=== PATIENT | male | born 1965 | race Caucasian/White ===

== ENCOUNTER 2019-06-17 12:44 | Inpatient (IN) | payer OTHER ==
[~2019-06-17] VITALS: Ht 177.8 cm; Wt 85.7 kg
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
[2019-06-17 12:45] VITALS: BP 142/96
[2019-06-17 13:07] LABS: ABSOLUTE NEUTROPHILS 4.7 thou/uL (1.4-8.2); BASOPHILS 1.3 % (0.0-2.0); EOSINOPHILS 3.1 % (0.0-3.0); HEMATOCRIT 41.1 % (42.0-52.0); HEMOGLOBIN 14.2 gm/dL (14.0-18.0); LYMPHOCYTES 17.6 % (24.0-44.0); MCH 27.9 pg (26.0-34.0); MCHC 34.4 g/dL (28.0-37.0); MCV 81.1 fL (80.0-100.0); MONOCYTES 6.5 % (1.0-8.0); PLATELET COUNT 212 thou/uL (150-400); POLYS 71.5 % (36.0-66.0); RBC 5.08 mil/uL (4.50-6.00); WBC 6.6 thou/uL (4.0-11.0)
[2019-06-17 13:16] LABS: CALCIUM 9.1 mg/dL (8.5-10.1); POTASSIUM 3.5 mmol/L (3.5-5.1)
[2019-06-17 13:22] LABS: ALBUMIN 3.8 g/dL (3.4-5.0); TOTAL BILIRUBIN 0.4 mg/dL (<0.1-1.0); TOTAL PROTEIN 7.1 g/dL (6.4-8.2)
[2019-06-17 13:23] LABS: APTT 25.9 Seconds (24.5-32.8)
[2019-06-17 13:25] LABS: POC CA IONIZED 4.6 mg/dL (4.5-5.3); POC CREATININE 0.9 mg/dL (0.6-1.3); POC HEMOGLOBIN 12.2 g/dL (14.0-18.0); POC POTASSIUM 3.9 mmol/L (3.5-5.1)
[2019-06-17 15:40] LABS: HEMATOCRIT 37.3 % (42.0-52.0); HEMOGLOBIN 12.6 gm/dL (14.0-18.0)
[2019-06-17 17:00] VITALS: BP 139/97
[2019-06-17 18:29] VITALS: BP 137/92
[2019-06-17 18:40] VITALS: BP 136/98
[2019-06-17 19:50] VITALS: BP 147/100
[2019-06-18] VITALS (7 sets, daily range): BP systolic 116–124; BP diastolic 60–87
--- NOTE | 2019-06-18 01:48 | NUR ---
ASSESSMENT: PT REMAIN ALERT AND ORIENT TIMES FOUR. PT IS SLEEPY, YET EASY TO AROUSE. RIGHT GROIN SITE, CLEAR OF OOZING AND PAIN. SR PER MONITOR, VSS, AFEBRILE. SPOUSE AT THE SIDE OF THE BED FOR THE NIGHT. POST COIL EMBOLIZATION THE PT IS RESTING WELL. REMAINING NPO, BLOOD SUGAR WAS 88, D5W 1/2 NS WITH 20 MEQ KCL INITIATED. SLOW PROGRESS TOWARDS DC GOALS, WILL CONTINUE TO MONITOR.
[2019-06-18 05:26] LABS: HEMATOCRIT 33.9 % (42.0-52.0); HEMOGLOBIN 11.5 gm/dL (14.0-18.0); MCH 27.9 pg (26.0-34.0); MCV 82.1 fL (80.0-100.0); RBC 4.14 mil/uL (4.50-6.00); RDW 14.4 % (10.5-14.5); WBC 7.4 thou/uL (4.0-11.0)
[2019-06-18 05:36] LABS: CALCIUM 7.8 mg/dL (8.5-10.1); CREATININE 0.8 mg/dL (0.7-1.3); MAGNESIUM 1.8 mg/dL (1.8-2.4); PHOSPHORUS 2.7 mg/dL (2.5-4.9); POTASSIUM 3.5 mmol/L (3.5-5.1)
[2019-06-18 17:54] LABS: HEMATOCRIT 33.7 % (42.0-52.0); HEMOGLOBIN 11.4 gm/dL (14.0-18.0)
--- NOTE | 2019-06-18 19:08 | NUR ---
PT ALERT AND ORIENTED TIMES FOUR. VSS, SR ON TELE, IVF INFUSING PER ORDER. PT DENIES PAIN/SOA. PT TOLERATES MEDS AND MEALS. PT UP TO RESTROOM WITH STANDBY ASSIST. PT AT BEDSIDE. PT SLOWLY PROGERSSING TOWRADS POC GOALS.
--- NOTE | 2019-06-19 01:57 | NUR ---
2200--ENTERED PT ROOM TO HANG A DOSE OF FLAGYL AND APPLY PT NICOTENE PATCH. STARTED FLAGYL AND PT STATED THAT WHATEVER I DID TO HIS IV IT WAS NOW HURTING. PT BECAME VERBALLY ABUSIVE AND DEMANDED THAT I STOP THE IV AND REMOVE IV FROM HIS ARM. I REMOVED IV FROM LEFT FOREARM AND SUGGESTED WE TRY THE IV IN HIS RIGHT AC. AGAIN USING EXPLETIVES HE SAID HE WOULD TAKE NOTHING MORE IV AND DEMANDED I LEAVE EVERYTHING DISCONNECTED. HE WANTED THE TELEMETRY DISCONNECTED, HE REFUSED VITALS AND ACCUCHECK. HE CONTINUED TO BE VERBALLY ABUSIVE. CONTACTED NURSE PRACTITIONER REQUESTING TO DC TELE AND EXPLAINED HE WAS REFUSING EVERYTHING. SHE GAVE ORDER TO DC EVERYTHING AND SAID IF HE WAS REFUSING TREATMENT HE WAS FREE TO LEAVE AMA. HE ALSO WAS VERY UPSET THAT HE WAS NOT ALLOWED TO GO OUTSIDE TO SMOKE. STAFF WILL ADDRESS THIS WITH HIM IN AM. WILL CONTINUE TO MONITOR.
[2019-06-19 05:45] LABS: HEMATOCRIT 31.9 % (42.0-52.0); HEMOGLOBIN 10.9 gm/dL (14.0-18.0); MCH 27.9 pg (26.0-34.0); MCHC 34.2 g/dL (28.0-37.0); MCV 81.5 fL (80.0-100.0); RBC 3.91 mil/uL (4.50-6.00); RDW 14.7 % (10.5-14.5); WBC 5.6 thou/uL (4.0-11.0)
[2019-06-19 06:02] LABS: CALCIUM 8.4 mg/dL (8.5-10.1); CREATININE 0.8 mg/dL (0.7-1.3); MAGNESIUM 2.1 mg/dL (1.8-2.4); PHOSPHORUS 3.2 mg/dL (2.5-4.9); POTASSIUM 3.8 mmol/L (3.5-5.1)
[2019-06-19 07:43] VITALS: BP 129/72
[2019-06-19] MEDS ORDERED: PEPCID20 MG PO (10:20)
[2019-06-19] MEDS ORDERED: NICOTINE TRANSD21 M1 TRANSDERM (10:20)
[2019-06-19 10:27] VITALS: BP 129/72
--- NOTE | 2019-06-19 10:33 | NUR ---
pt's asessment has done, pt is A&O X3, PT's vs are stable, pt denies pain , sob and DI bleeding, pt gets up tp walk in his room, pt is tolerate regular diet, RN has reported to Dr about pt refusion medications past shift, RN has received order , pt will d/c to home today.
--- NOTE | 2019-06-19 11:11 | NUR ---
RN has giving pt d/c teaching, pt understands well, pt's RAC piv has removed, pt was going home with his family at 1100am.
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
== END 2019-06-19 11:08 | disposition home or self-care (01) | DRG 983 ==
LOC: ER 12:44 → EROBS 14:57 → 3W 18:31
PROVIDERS: Emergency Medicine; ADMIT Internal Medicine
PROC: 04V Lower Arteries, Restriction (ICD-10-PCS; principal; 2019-06-17)
DX: K62.5 Hemorrhage of anus and rectum (principal); F17.210 Nicotine dependence, cigarettes, uncomplicated; K57.90 Diverticulosis of intestine, part unspecified, without perforation or abscess without bleeding; Z90.49 Acquired absence of other specified parts of digestive tract; Z91.19 Patient's noncompliance with other medical treatment and regimen; Z87.820 Personal history of traumatic brain injury; Z83.79 Family history of other diseases of the digestive system; Z83.3 Family history of diabetes mellitus; Z80.42 Family history of malignant neoplasm of prostate; Z80.0 Family history of malignant neoplasm of digestive organs; Z71.6 Tobacco abuse counseling
CPT/HCPCS: 10779